=== PATIENT | male | born 1965 | race Caucasian/White ===

== ENCOUNTER → 2020-09-04 09:42 | Outpatient (CLI) | payer BC, SELFPAY ==
--- NOTE | 2020-09-04 06:32 | CT_ITS ---
STUDY: CT MAXILLOFACIAL SINUSES REASON FOR EXAM: Male, 54 years old. SINUSITIS RADIATION DOSAGE (If Supplied By Facility): CTDIvol = ( 33.06 ) mGy, DLP = ( 829.72 ) mGycm TECHNIQUE: The patient was scanned in a multi detector CT scanner. High resolution axial imaging was performed without the administration of intravenous contrast material. Sagittal and coronal images were reconstructed. Individualized dose optimization techniques were used for this CT. COMPARISON: None. FINDINGS: FRONTAL SINUSES: Mucosal thickening in the right frontal sinus consistent with chronic sinusitis. ETHMOIDAL SINUSES: Opacification right ethmoid air cells consistent with chronic sinusitis. MAXILLARY SINUSES: Complete opacification of the right maxillary sinus with expansion of the medial wall consistent with chronic sinusitis. SPHENOIDAL SINUSES: Normal aeration, without mucosal inflammatory disease. The right ostiomeatal unit is occluded. Normal bilateral middle turbinates. Normal bilateral inferior turbinates. Normal midline nasal septum. There is patency of the bilateral nasal airways. The visualized osseous structures are normal. The visualized bilateral orbital contents are normal. CT/Sinus/Facial Bone IMPRESSION: Chronic sinusitis with complete opacification the right maxillary sinus with extension of soft tissue attenuation through the medial wall. The ostiomeatal unit into the right-sided nasal cavity and ethmoid air cells. Polyp or other mass cannot be excluded. Electronically Signed: Juice Ervin MD at 10:23 EST Tel , Service support ,
== END ==
PROVIDERS: PCP Family Medicine; Referring Provider Otolaryngology; Visit Provider Otolaryngology
DX: J38.2 Nodules of vocal cords (principal)
CPT/HCPCS: 70486

== ENCOUNTER → 2020-09-29 14:06 | Outpatient (CLI) | payer BC, SELFPAY | PROVIDERS: PCP Family Medicine; Referring Provider Otolaryngology; Visit Provider Otolaryngology | DX: Z11.59 Encounter for screening for other viral diseases (principal) | CPT/HCPCS: 87635; C9803; U0002 ==

== ENCOUNTER → 2020-10-18 16:03 | Outpatient (CLI) | payer BC, SELFPAY | PROVIDERS: PCP Family Medicine; Referring Provider Otolaryngology; Visit Provider Otolaryngology | DX: J32.9 Chronic sinusitis, unspecified (principal) | CPT/HCPCS: 87070; 87205 ==

== ENCOUNTER → 2021-03-18 11:24 | Outpatient (CLI) | payer BC, SELFPAY ==
--- NOTE | 2021-03-18 11:31 | EKG12_ITS ---
Test Reason : PREOP Blood Pressure : / mmHG Vent. Rate : 068 BPM Atrial Rate : 068 BPM P-R Int : 112 ms QRS Dur : 082 ms QT Int : 388 ms P-R-T Axes : 014 020 019 degrees QTc Int : 412 ms Normal sinus rhythm Nonspecific ST abnormality Abnormal ECG Confirmed by ENRIQUE JAMES, DEEPA ([id number]), newspaper or periodical editor KEON RIVERA ([id number]) on 03/21/2021 2:04:41 PM Referred By: Lucas Oquendo Confirmed By:DEEPA NUNEZ MD
[2021-03-18 12:06] LABS: Hematocrit 44.4 % (40-54); Mean Corp Hgb Conc 33.8 g/dL (32-36); Mean Corpuscular Hgb 29.8 pg (27.0-32.0); Mean Corpuscular Volume 88.3 fL (80-94); Mean Platelet Vol. 9.9 fl (6.2-12.0); Platelet Count 327 K/mm3 (150-450); RBC Distribution Width CV 12.5 % (11.6-14.6); RBC Distribution Width SD 40.1 fl (35.1-43.9); Red Blood Count 5.03 M/mm3 (4.6-6.2); White Blood Count 9.4 K/mm3 (4.4-11.0)
[2021-03-18 12:21] LABS: Anion Gap 1 (5-15); BUN 14 mg/dL (7-18); BUN/Creat Ratio 16.1 RATIO (10-20); Calcium,Total 8.9 mg/dL (8.5-10.1); Chloride 107 mmol/L (98-107); Creatinine, Serum 0.87 mg/dL (0.70-1.30); EST Glomerular Filtration Rate 97 mL/min (>60); Est Glom Filt Rate - Afr Amer 117 mL/min (>60); Glucose 89 mg/dL (74-106); Potassium 3.9 mmol/L (3.5-5.1); Sodium Level 140 mmol/L (136-145)
== END ==
PROVIDERS: PCP Family Medicine; Referring Provider Otolaryngology; Visit Provider Otolaryngology
DX: Z01.812 Encounter for preprocedural laboratory examination (principal); R94.31 Abnormal electrocardiogram [ECG] [EKG]; Z01.818 Encounter for other preprocedural examination
CPT/HCPCS: 36415; 80048; 85027; 93005

== ENCOUNTER → 2021-03-24 11:00 | Outpatient (CLI) | payer BC, SELFPAY ==
--- NOTE | 2021-03-24 11:00 | NASAL_PTH ---
PATIENT: JEN ADAM LOC: [facility] U#:[id number] AGE/SX: 59/M ROOM: RE03/24/[address]: Dr. Jose Luis Oquendo MD : 1965 BED: DIS: SPEC #: [id number] RECD: 03/24/21 15:02 STATUS: MARIA L RADHA #: [id number] DARRELL: 03/24/21 11:[address]: Jose Luis Oquendo DEPT: SURGICAL PATHOLOGY RECD BY: Aileen Matson ENTERED: 03/25/21 11:57 SP TYPE: NASAL SPEC OTHR DR: Dr. Donnell Calderon MD [facility] Tissues: A - Nasal turbinate, NOS B - Nasal turbinate, NOS Procedures: Decalcification bone/plaque Special Stain Group I Surgery Specimen Level III GMS Stain (control) HEADER OPERATION: Functional endoscopic sinus surgery, resection of inferior turbinates PRE-OP DIAGNOSIS: Pansinusitis, hypertrophy of nasal turbinates, chronic nasal congestion TISSUE SUBMITTED: A ? Right sinus contents, B ? Left sinus contents MICROSCOPIC DIAGNOSIS A. Right sinus contents, curettings: Consistent with chronic sinusitis. Fragments of bone with no pathologic change. Negative for fungal organisms. See comment. B. Left sinus contents, curettings: Consistent with chronic sinusitis. Fragments of bone with no pathologic change. AM:marita 03/30/2021 COMMENT A. GMS stain with matched control was used in the evaluation of this case. MICROSCOPIC DESCRIPTION Slides are reviewed. GROSS DESCRIPTION A - Received in fixative is one container labeled with the patient's name and designated right sinus contents. The specimen consists of multiple irregular fragments of vargas-pink soft tissue mixed with fragments of bone that in aggregate measure 3 x 2.5 x 0.3 cm. The specimen is totally submitted in one cassette after decalcification. B - Received in fixative is one container labeled with the patient's name and designated left sinus contents. The specimen consists of a piece of mucosal tissue with underlying bone consistent with turbinate tissue measuring 3 x 0.5 x 0.5 cm. Also present in the container is a piece of vargas-pink soft tissue measuring 1 x 0.5 x 0.2 cm. The specimen is totally submitted in one cassette after decalcification. / CYNDEE:marita 03/25/21 TC:5 CPT: 42876 x2, 91815, 69541 x2
== END ==
PROVIDERS: PCP Family Medicine; Referring Provider Otolaryngology; Visit Provider Otolaryngology
DX: J32.4 Chronic pansinusitis (principal); J34.3 Hypertrophy of nasal turbinates
CPT/HCPCS: 88304; 88311; 88312

== ENCOUNTER → 2021-06-08 17:35 | Outpatient (CLI) | payer BC, SELFPAY | PROVIDERS: PCP Family Medicine; Referring Provider Otolaryngology; Visit Provider Otolaryngology | DX: J32.8 Other chronic sinusitis (principal) | CPT/HCPCS: 87070; 87205 ==

== ENCOUNTER 2021-08-04 16:59 | Outpatient (CLI) | payer BC, SELFPAY | END 2021-08-04 23:59 | disposition short-term general hospital (02) | PROVIDERS: PCP Family Medicine; Visit Provider Otolaryngology | DX: J32.9 Chronic sinusitis, unspecified (principal) | CPT/HCPCS: 87070; 87186; 87205 ==